=== PATIENT | female | born 1955 | race Caucasian/White ===

== ENCOUNTER → 2021-05-07 | Outpatient (CLI) | payer OTHER | LOC: M.RAD 05-01 11:15 | PROVIDERS: ATTEND Family Medicine | DX: Z12.31 Encounter for screening mammogram for malignant neoplasm of breast (principal); Z00.00 Encounter for general adult medical examination without abnormal findings; M81.0 Age-related osteoporosis without current pathological fracture; Z78.0 Asymptomatic menopausal state ==

== ENCOUNTER → 2021-05-15 | Outpatient (CLI) | payer OTHER | LOC: M.RAD 05-09 15:29 | PROVIDERS: ATTEND Family Medicine | DX: R92.2 Inconclusive mammogram (principal) ==

== ENCOUNTER 2021-07-15 15:10 | Emergency (ER) | payer BC ==
[~2021-07-15] VITALS: Ht 154.9 cm; Wt 64.4 kg
[2021-07-15] MEDS ORDERED: ZESTRIL20 MG PO (15:40)
[2021-07-15] MEDS ORDERED: ELIQUIS5 MG PO (15:41)
[2021-07-15] MEDS ORDERED: ROSUVASTATIN CA20 MG PO (15:41)
[2021-07-15] MEDS ORDERED: DILTIAZEM 24HR120 M1 PO (15:43)
[2021-07-15] MEDS ORDERED: CLONIDINE HCL0.1 MG PO (15:44)
[2021-07-15] MEDS ORDERED: PLAVIX 75 MG TA75 MG PO (15:44)
[2021-07-15] MEDS ORDERED: PROTONIX40 M2 PO (15:44)
[2021-07-15] MEDS ORDERED: HYDROCODON-ACE1 EAC7 PO (17:48)
[2021-07-15] MEDS ORDERED: PREDNISONE 20 M20 MG PO (17:58)
[2021-07-15 18:07] VITALS: BP 157/62
== END 2021-07-15 18:08 | disposition home or self-care (01) ==
LOC: M.ERS 15:10
DX: M75.41 Impingement syndrome of right shoulder (principal); I48.91 Unspecified atrial fibrillation; F17.210 Nicotine dependence, cigarettes, uncomplicated; Z79.899 Other long term (current) drug therapy; Z88.8 Allergy status to other drugs, medicaments and biological substances

== ENCOUNTER → 2021-07-29 | Outpatient (CLI) | payer BC ==
[~2021-07-29] MED LIST: CLONIDINE HCL0.1 MG PO; COQ-10100 MG PO; DILTIAZEM 24HR120 M1 PO; ELIQUIS5 MG PO; HYDROCODON-ACE1 EAC7 PO; LORATIDINE 10 M10 M1 PO; MULTIVITAMIN W1 EAC2 PO; PLAVIX 75 MG TA75 MG PO; PREDNISONE 20 M20 MG PO; PROTONIX40 M2 PO; RED YEAST RICE600 M1 PO; ROSUVASTATIN CA20 MG PO; SUPER B-COMPL400 MCG PO; VITAMIN D350 MCG PO; ZESTRIL20 MG PO; ZINC30 M1 PO
== END ==
LOC: M.PC 08:48
PROVIDERS: ATTEND Anesthesiology Pain Medicine
DX: M25.511 Pain in right shoulder (principal); M54.2 Cervicalgia; F17.200 Nicotine dependence, unspecified, uncomplicated; Z88.8 Allergy status to other drugs, medicaments and biological substances; Z79.899 Other long term (current) drug therapy